=== PATIENT | male | born 2005 | race American Indian/Alaskan Native ===

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

== ENCOUNTER 2024-01-16 22:27 | Emergency (ER) | payer SELFPAY ==
[2024-01-16] MEDS ORDERED: Sodium Chloride 0.9% 10 ML Syringe FLUSH PRN (22:45)
[2024-01-16 22:50] VITALS: BP 126/90; PULSE 103
[2024-01-16 23:03] LABS: BASOPHILS PERCENT AUTO 0.4 % (0.0-1.0); EOSINOPHILS PERCENT AUTO 2.8 % (1.0-3.0); HEMATOCRIT 48.2 % (40.0-54.0); LYMPHOCYTES PERCENT AUTO 20.9 % (20.5-50.1); MEAN CORPUSCULAR HEMOGLOBIN 31.1 pg (27.0-34.0); MEAN CORPUSCULAR HGB CONC 33.2 g/dL (33.0-35.0); MEAN CORPUSCULAR VOLUME 93.6 fL (80-100); MONOCYTES PERCENT AUTO 15.6 % (2-8); NEUTROPHILS PERCENT AUTO 60.3 % (42.2-75.2); PLATELET COUNT,PLT 320 10^3/uL (150-450); RED BLOOD CELL COUNT 5.15 10^6/uL (4.6-6.2)
[2024-01-16] MEDS: HYDROmorphone 0.5 MG/0.5 ML Syringe IVPUSH ONE (23:15)
[2024-01-16] MEDS: Ondansetron 4 MG/2 ML SDV IVPUSH ONE (23:15)
[2024-01-16 23:23] LABS: A/G RATIO 1.1; ALANINE AMINOTRANSFERASE,ALT 12 U/L (16-63); ALBUMIN 3.6 g/dL (3.4-5.0); ALKALINE PHOSPHATASE 82 U/L (46-116); ANION GAP 11.1 mEq/L (7-13); ASPARTATE AMNIOTRANSFERASE,AST 7 U/L (15-37); BILIRUBIN TOTAL 0.2 mg/dL (0.2-1.0); BLOOD UREA NITROGEN,BUN 6 mg/dL (7-18); BUN/CREATININE RATIO 7.1 (No establ ref range); CALCIUM 8.4 mg/dL (8.5-10.1); CARBON DIOXIDE,CO2 29 mmol/L (21-32); CHLORIDE,CL 105 mmol/L (98-107); CREATININE 0.85 mg/dL (0.70-1.30); EST CRCL DRUG DOSING (CG) 144.33 mL/min; GLUCOSE RANDOM 93 mg/dL (70-99); MAGNESIUM 1.9 mg/dL (1.8-2.4); POTASSIUM,K 4.1 mmol/L (3.5-5.1); PROTEIN TOTAL,TP 6.8 g/dL (6.4-8.2); SODIUM,NA 141 mmol/L (136-145)
[2024-01-16 23:27] LABS: C-REACTIVE PROTEIN < 0.50 ng/dL (<=0.50); ESTIMATED GFR 128 mL/min (>=60)
[2024-01-16] MEDS ORDERED: Vancomycin 1.5 GM in Sodium Chloride 0.9% 500 ML IV ONE (23:44)
[2024-01-17] MEDS: Lidocaine 2% 20 ML MDV INJECT ONE (00:25)
[2024-01-17] MEDS: Bacitracin Oint 1 GM U/D Packet TOP ONE (00:49)
[2024-01-17] MEDS: HYDROmorphone 0.5 MG/0.5 ML Syringe IVPUSH ONE (00:55)
[2024-01-17] MEDS: Acetaminophen 500 MG Tab PO ONE (01:40)
[2024-01-17] MEDS: Ketorolac 30 MG/ML SDV IVPUSH ONE (01:40)
== END 2024-01-17 02:30 | disposition home or self-care (01) ==
LOC: DL.ED 22:27
DX: L03.011 Cellulitis of right finger (principal); Z88.8 Allergy status to other drugs, medicaments and biological substances
CPT/HCPCS: 36415; 64450; 73140; 80053; 83735; 84145; 85025; 86140; 87040; 87070; 87077; 87186; 96365; 96366; 96375; 96376; 99283; A9270; J1170; J1885; J2405; J3370; J7050; J3490